=== PATIENT | male | born 1955 | race African-American/Black ===

== ENCOUNTER → 2016-10-07 | Day surgery (SDC) | payer OTHER ==
[~2016-10-07] VITALS: Ht 188 cm; Wt 105.3 kg
[~2016-10-07] MED LIST: ACETAMINOPHEN/HYDROcodone 325 MG/5 MG TAB ONE; LATA0.002 EACH EYE; LISI-515 PO; METO50TA PO; METOPROLOL TARTRATE 25 MG TAB ONE; PERC10TA27 PO; PERC5TAB12 PO; PROPOFOL 200 MG/20 ML AMP IV ONE; SODIUM CHLORIDE 0.9% INJ 100 ML ONE; TAMS5CAP PO; ceFAZolin INJ 1,000 MG VIAL ONE
--- NOTE | 2016-10-07 07:27 | RADRPT ---
EXAM DATE/TIME: 10/07/2016 08:07 [facility] COMPARISON: ABDOMEN KUB ONLY, June 03, 2015, 10:45. INDICATIONS : Left side pain. MEDICAL HISTORY : Left side kidney stones SURGICAL HISTORY : None. ENCOUNTER: Initial ACUITY: 1 day PAIN SCORE: 5/10 LOCATION: Left abdomen FINDINGS: Supine view of the abdomen was performed. The abdominal bowel gas pattern is normal. No definite justin cifications are seen over the kidneys. However, stool and bowel gas obscure the left kidney. There is evidence of previous lumbar spinal surgery with fusion. The lung bases are grossly clear. Otherwise, no significant change compared to the prior study. CONCLUSION: Benign KUB. Alfredo Suarez MD on October 07, 2016 at 7:25 Board Certified Radiologist. This report was verified electronically.
[2016-10-07 07:45] VITALS: BP 147/96; PULSE 66; RESP 20; TEMP 98.1; O2SAT 96
[2016-10-07 07:53] LABS: AUTOMATED NEUTROPHIL # 2.6 TH/MM3 (1.8-7.7); BASOPHIL % 0.7 % (0.0-2.0); EOSINOPHIL # 0.1 TH/MM3 (0-0.4); EOSINOPHIL % 1.9 % (0.0-4.0); HEMATOCRIT 43.1 % (39.0-51.0); HEMO FLAGS DIFF FINAL; LYMPH % 38.9 % (9.0-44.0); MEAN CELL VOLUME 96.7 FL (80.0-100.0); MEAN CORPUSCULAR HEMOGLOBIN 32.5 PG (27.0-34.0); MEAN CORPUSCULAR HGB CONC 33.6 % (32.0-36.0); MONO % 7.5 % (0.0-8.0); PLATELET COUNT 145 TH/MM3 (150-450); RED BLOOD COUNT 4.45 MIL/MM3 (4.50-5.90); RED CELL DISTRIBUTION WIDTH 12.6 % (11.6-17.2); WHITE BLOOD COUNT 5.2 TH/MM3 (4.0-11.0)
--- NOTE | 2016-10-07 08:51 | EKG ---
Date Performed: 10/07/2016 Time Performed: 06:45:01 PTAGE: 61 years EKG: Sinus rhythm NORMAL ECG PREVIOUS TRACING : 06/04/2015 08.26 DOCTOR: Rony Kenyon Interpretating Date/Time 10/07/2016 08:49:38
--- NOTE | 2016-10-07 09:07 | PD.OP ---
Operative Report Date of Surgery: Oct 07, 2016 Preoperative Diagnosis: Left renal calculi Postoperative Diagnosis: Same Procedure: Left ESWL Anesthesia: TIVA Surgeon: Jason Resendez [employer] [place] Paper(s): None Resident Surgeon: None Operation and Findings: This is a 61-year-old male who presented with bilateral renal calculi. Patient was noted a 6 mm left renal calculus and elected to undergo left extracorporeal shockwave lithotripsy. Risk and benefits were discussed preoperatively and the patient was willing to proceed. Patient is brought to the operating room and identified by myself as Chris Olsen. He was placed in the supine position on the operating table and received TIVA anesthesia. Preprocedure antibiotics were given. Under fluoroscopic imaging guidance the stone was visualized in the left mid pole and this was confirmed on ultrasound imaging. ESWL therapy commenced and good fragmentation of the stone was visualized. The patient received a total of 2750 shocks and good fragmentation was visualized. He tolerated procedure well and was transferred to recovery room in stable condition. In the future, he will need right sided extracorporeal shockwave lithotripsy treatment. Patient will obtain a CT scan prior to his clinic visit. Jason Resendez DO Oct 07, 2016 09:07
[2016-10-07 11:16] VITALS: BP 135/89; PULSE 54; RESP 16; TEMP 97.9; O2SAT 98
== END | disposition home or self-care (01) ==
LOC: HSDC 06:03
PROVIDERS: ATTEND Urology
DX: N20.0 Calculus of kidney (principal); I10 Essential (primary) hypertension
CPT/HCPCS: 00873; 50590; 74000; 85025; 93005; J0690; J3010

== ENCOUNTER → 2016-10-29 | Outpatient (CLI) | payer OTHER ==
[~2016-10-29] MED LIST changes: -ACETAMINOPHEN/HYDROcodone 325 MG/5 MG TAB ONE; -METOPROLOL TARTRATE 25 MG TAB ONE; -PERC5TAB12 PO; -PROPOFOL 200 MG/20 ML AMP IV ONE; -SODIUM CHLORIDE 0.9% INJ 100 ML ONE; -ceFAZolin INJ 1,000 MG VIAL ONE
--- NOTE | 2016-10-29 16:43 | RADRPT ---
EXAM DATE/TIME: 10/29/2016 13:04 [facility] COMPARISON: No previous studies available for comparison. INDICATIONS : Abdomen pain, calculi. ORAL CONTRAST: No oral contrast ingested. RADIATION DOSE: 8.38 CTDIvol (mGy) MEDICAL HISTORY : Hypertension. Hepatitis C. Renal calculi. SURGICAL HISTORY : Fusion, lumbar. ENCOUNTER: Initial ACUITY: 1 month PAIN SCALE: 7/10 LOCATION: Right flank region. TECHNIQUE: Volumetric scanning of the abdomen and pelvis was performed. Using automated exposure control and ad justment of the mA and/or kV according to patient size, radiation dose was kept as low as reasonably achievable to obtain optimal diagnostic quality images. FINDINGS: LOWER LUNGS: The visualized lower lungs are clear. LIVER: Homogeneous density without lesion. There is no dilation of the biliary tree. No calcified gallston es. SPLEEN: Normal size without lesion. PANCREAS: Within normal limits. KIDNEYS: Normal in size and shape. There is no focal mass or hydronephrosis. There are multiple bilateral zeferino al calculi. On the left there are 3 small calculi in the lower pole measuring 1-3 mm in size. On the right there are 5 or 6 small nonobstructing 2 to or calculi. The ureters appear unremarkable ADRENAL GLANDS: Within normal limits. VASCULAR: There is no aortic aneurysm. BOWEL/MESENTERY: The stomach, small bowel, and colon demonstrate no acute abnormality. There is no free intraperitone al air or fluid. ABDOMINAL WALL: Within normal limits. RETROPERITONEUM: There is no lymphadenopathy. BLADDER: No wall thickening or mass. REPRODUCTIVE: Within normal limits. INGUINAL: There is no lymphadenopathy or hernia. MUSCULOSKELETAL: Within normal limits for patient age. CONCLUSION: Multiple small bilateral nonobstructing renal calculi. Minh Quezada MD on October 29, 2016 at 16:37 Board Certified Radiologist. This report was verified electronically.
== END ==
LOC: HRAD 12:23
PROVIDERS: ATTEND Urology
DX: N20.1 Calculus of ureter (principal)
CPT/HCPCS: 74176